=== PATIENT | male | born 1980 | race Caucasian/White ===

== ENCOUNTER 2016-11-14 13:47 | Emergency (ER) ==
[2016-11-14 13:58] VITALS: BP 152/80
[2016-11-14] MEDS ORDERED: XYLOCAINE-MPF 1% INJ ONE (16:06)
[2016-11-14] MEDS ORDERED: ROCEPHIN IM ONE (16:06)
--- NOTE | 2016-11-14 16:12 | PROVIDER DOCUMENTATION ---
HPI-EENT General - General Chief Complaint: Cold Symptoms Stated Complaint: SINUS SX Time Seen by Provider: 11/14/16 15:49 Source: patient, family Allergies/Adverse Reactions: Patient Allergies Allergy/AdvReac Type Severity Reaction Status Date / Time venom-honey bee Allergy Mild SWELLING Verified 07/30/16 14:31 [bee venom (honey bee)] Home Medications: Home Medication List Medication Instructions Recorded Confirmed Last Taken Type Hum Insulin NPH/Reg Insulin Hm 25 units SQ BID 10/29/15 12/10/15 12/10/15 History [Novolin 70-30 In[place]let] Hyoscyamine Sulfate [Oscimin Sr] 1 each PO Q12HR 10/29/15 12/10/15 12/10/15 History Lisinopril 5 mg PO DAILY 10/29/15 12/10/15 12/10/15 History Lorazepam [Ativan] 1 mg PO QHS 10/29/15 12/10/15 12/10/15 History Multivit-Min/FA/Lycopen/Lutein 1 each PO DAILY 10/29/15 12/10/15 12/10/15 History [Centrum Silver Tablet] Pantoprazole [Protonix] 40 mg PO BID 10/29/15 12/10/15 12/10/15 History l Gasseri/B Bifidum/B Longum 1 each PO DAILY 10/29/15 12/10/15 12/10/15 History [Valerio' Colon Health Capsule] Amoxicillin 500 mg PO TID #30 capsule 12/10/15 Unknown Rx Erythromycin Base [Erythromycin] 500 mg PO BID #20 tablet 12/10/15 Unknown Rx Potassium Chloride 8 meq PO TID 12/10/15 12/10/15 12/10/15 History Azithromycin [Zithromax Z-Jatinder] 250 mg PO DIRECTED #1 pkg 07/30/16 Unknown Rx Diclofenac Sodium 50 mg PO Q8-12H PRN PRN #30 07/30/16 Unknown Rx tablet. Dicyclomine HCl [Bentyl] 20 mg PO TID #30 tablet 07/30/16 Unknown Rx Famotidine [Pepcid] 20 mg PO DAILY #20 tablet 07/30/16 Unknown Rx Ondansetron Odt [Zofran 8Mg Odt] 8 mg PO Q8H PRN PRN #20 tablet 07/30/16 Unknown Rx Prednisone [Deltasone] 20 mg PO DIRECTED #12 tablet 07/30/16 Unknown Rx CefDINIR [Omnicef] 300 mg PO RTQ12H #20 capsule 11/14/16 Unknown Rx - History of Present Illness-EENT General EENT Location: reports: ear (R), ear (L), nose, facial Quality of Pain: reports: aching Severity: reports: mild Onset/Duration: reports: 2 days ago Timing: reports: still present Prearrival Treatment: Initiated over the counter meds Associated Symptoms: reports: facial pain/swelling Other injuries?: reports: neck Locality of Occurance: Home Similar Symptoms Previously?: Yes (SINUS INFECTIONS) Recently seen or treated by another doctor?: No - Eyes Eye Problem Symptoms: denies: eye pain, decrease vision, blurred vision, double vision, curtain, other, burning, itching, sensitivity to light, redness, matting , orbital swelling, eyelid swelling, foreign body sensation - Ears Ear Problem Symptoms: reports: earache Ear Problem Context: reports: none. denies: barotrauma, foreign body, trauma to ear, other - Nose Nose Problem Symptoms: other (NASAL CONGESTION) - Throat/Dental Throat/Dental Problem Symptoms: reports: sore throat Recently seen a dentist or have an appointment?: No Review of Systems - Adult - REVIEW OF SYSTEMS - ADULT Constitutional: reports: chills Eyes: reports: no symptoms reported Ears, Nose, Mouth & Throat: reports: ear pain, nose pain Cardiovascular: reports: no symptoms reported Respiratory: reports: no symptoms reported Gastrointestinal: reports: no symptoms reported Genitourinary: reports: no symptoms reported Musculoskeletal: reports: no symptoms reported Integumentary: reports: no symptoms reported Neurological: reports: no symptoms reported Psychiatric: reports: no symptoms reported Endocrine: reports: no symptoms reported Hematologic/Lymphatic: reports: no symptoms reported Allergic/Immunologic: reports: no symptoms reported All Other Systems: Reviewed and Negative Past History - Adult - PAST MEDICAL HISTORY-ADULT Review of Records: reports: Old Records Reviewed, Nursing Assessment Review, Medications Reviewed Major Childhood Illnesses: reports: denies history Cardiovascular: reports: HTN Respiratory: reports: denies history Gastrointestinal: reports: GERD, ulcer, other (hernia) Genitourinary: reports: denies history Musculoskeletal: reports: denies history Neurological: reports: Seizures/Epilepsy Psychiatric: reports: anxiety Endocrine/Immune: reports: Diabetes Diabetes Type: Type 1 Other Conditions: reports: denies history - PRIOR SURGERIES/PROCEDURES Surgical/Procedure History: reports: tonsillectomy, esophageal dilation, orthopedic (extremity) (left leg hardware) - IMMUNIZATION STATUS Childhood Immunizations: See Nurse Assessment Flu Vaccine: See Nurse Assessment - FAMILY HISTORY Family History: reviewed, not pertinent - SOCIAL HISTORY Smoking: denies Substance Use: none/never Alcohol Use Frequency: never Living Situation: family Physical Exam- EENT - Physical Exam EENT Initial Vital Signs Reviewed: Yes General Appearance: appears well Eye Exam: bilateral eye: normal inspection, PERRL, EOMI Ear Exam: bilateral ear: TM red Nasal Exam: discharge, sinus tenderness, other (TURBINATES ERYTHEMATOUS WITH YELLOW DISCHARGE.) Throat Exam: normal mouth inspection Neck: non-tender Respiratory: chest non-tender Cardiovascular: normal peripheral pulses Lymphatic: cervical node tenderness (ANTERIOR CERVICAL ENLARGEMENT, <2CM BILATERALLY, MOBILE) Back Exam: normal inspection Integumentary: normal color, normal turgor Neurologic: grossly normal Psych/Mental Status: normal mood/affect Progress - PLAN OF CARE/RESULTS Progress/Plan/Lab Results: Vital Signs Temp Pulse Resp BP Pulse Ox 11/14/16 13:56 97.6 F 84 18 152/80 100 venom-honey bee [bee venom (honey bee)] Allergy (Mild, Verified 07/30/16 14:31) SWELLING Hum Insulin NPH/Reg Insulin Hm [Novolin 70-30 In[place]let] 25 units SQ BID 10/29/15 Hyoscyamine Sulfate [Oscimin Sr] 1 each PO Q12HR 10/29/15 Lisinopril 5 mg PO DAILY 10/29/15 Lorazepam [Ativan] 1 mg PO QHS 10/29/15 Multivit-Min/FA/Lycopen/Lutein [Centrum Silver Tablet] 1 each PO DAILY 10/29/15 Pantoprazole [Protonix] 40 mg PO BID 10/29/15 l Gasseri/B Bifidum/B Longum [Valerio Colon Health Capsule] 1 each PO DAILY Amoxicillin 500 mg PO TID #30 capsule 12/10/15 Erythromycin Base [Erythromycin] 500 mg PO BID #20 tablet 12/10/15 Potassium Chloride 8 meq PO TID 12/10/15 Azithromycin [Zithromax Z-Jatinder] 250 mg PO DIRECTED #1 pkg 07/30/16 Diclofenac Sodium 50 mg PO Q8-12H PRN PRN #30 tablet. 07/30/16 Dicyclomine HCl [Bentyl] 20 mg PO TID #30 tablet 07/30/16 Famotidine [Pepcid] 20 mg PO DAILY #20 tablet 07/30/16 Ondansetron Odt [Zofran 8Mg Odt] 8 mg PO Q8H PRN PRN #20 tablet 07/30/16 Prednisone [Deltasone] 20 mg PO DIRECTED #12 tablet 07/30/16 Departure - Departure Time of Disposition Order: 16:07 DIAGNOSIS: Sinusitis Qualifiers: Sinusitis location: unspecified location Chronicity: acute Recurrence: recurrent Qualified Code(s): J01.91 - Acute recurrent sinusitis, unspecified Disposition: HOME 01 Certified Medical Emergency: Emergent Condition: Stable Additional Instructions: CONTINUE YOUR HOME MEDICATIONS. MONITOR YOUR BLOOD SUGAR WHILE ILL. TAKE ALL OF ANTIBIOTIC. TAKE CLARITIN OR ZYRTEC OVER THE COUNTER FOR RUNNY NOSE OR POST NASAL DRAINAGE. RETURN TO ER FOR ANY WORSENING SYMPTOMS. ED Follow Up Instructions: You have been treated by a care provider in the Emergency Department. These instructions are being provided to you so you can have an understanding of how to care for yourself upon discharge. Upon discharge from the Emergency Department, you are responsible for making arrangements for follow-up care by a physician of your choice. Take all prescribed medications as directed. Return to the Emergency Department immediately for any new or worsening symptoms. You may call the Physician Referral phone number at [phone] to obtain a list of Physicians who are taking new patients. Prescriptions: CefDINIR [Omnicef] 300 mg PO RTQ12H #20 capsule
== END 2016-11-14 17:28 | disposition home or self-care (01) ==
LOC: ED 13:47
DX: J01.91 Acute recurrent sinusitis, unspecified (principal); R09.81 Nasal congestion; R50.9 Fever, unspecified; H92.03 Otalgia, bilateral; R51 Headache; R68.83 Chills (without fever); J34.89 Other specified disorders of nose and nasal sinuses; I10 Essential (primary) hypertension; Z79.899 Other long term (current) drug therapy; K21.9 Gastro-esophageal reflux disease without esophagitis; E11.9 Type 2 diabetes mellitus without complications; F41.9 Anxiety disorder, unspecified; R59.0 Localized enlarged lymph nodes; Z79.4 Long term (current) use of insulin
CPT/HCPCS: J0696

== ENCOUNTER 2019-06-14 11:11 | Inpatient (IN) ==
[2019-06-14] MEDS ORDERED: NS 500 ML IV ONE ×2 (11:39→12:54)
[2019-06-14] MEDS ORDERED: MOTRIN PO ONE (11:50)
[2019-06-14 12:10] LABS: INR 1.1; PROTIME 14.3 Seconds (11.0-16.0)
[2019-06-14 12:11] LABS: PTT 33.6 Seconds (22.3-41.8)
[2019-06-14 12:26] LABS: ALB/GLOB RATIO 0.6; CALCIUM 8.3 mg/dL (8.8-10.2); CREATININE 6.5 mg/dL (0.7-1.2); POTASSIUM 5.6 mmol/L (3.5-5.1); TOTAL BILIRUBIN 0.39 mg/dL (0.20-1.00); TOTAL PROTEIN 5.3 g/dL (6.3-8.3)
[2019-06-14 12:33] LABS: MAGNESIUM 1.8 mg/dL (1.5-2.7); PHOSPHORUS 2.8 mg/dL (2.7-4.5)
[2019-06-14 12:36] LABS: ACETONE SERUM SMALL (NEGATIVE)
[2019-06-14] MEDS ORDERED: VANCOMYCIN 1 GM/NS 1 GM/250 ML IVPB IV ONE (12:59)
[2019-06-14 13:17] LABS: BASO# 0.01 X1000 (0.0-0.2); EOS# 0.02 X1000 (0.0-0.7); EOS% 0.1 % (0.0-10.0); HEMATOCRIT 37.3 % (42.0-52.0); HEMOGLOBIN 11.3 g/dL (14.0-18.0); IMM GRAN# 0.07 X1000 (0.0-0.04); IMM GRAN% 0.3 % (0.0-0.5); LYMPH% 1.6 % (20.5-51.1); MCH 24.2 PG (27-31); MCHC 30.3 g/dL (33-37); MCV 79.9 FL (81-99); MONO# 0.19 X1000 (0.11-0.59); MONO% 0.8 % (1.7-9.3); MPV 9.5 FL (7.4-10.4); NEUT# 23.87 X1000 (1.4-6.5); NEUT% 97.2 % (42.2-75.2); PLT 550 X1000 (130-400); RBC 4.67 XMIL (4.7-6.1); RDW 14.6 % (11.5-14.5); WBC 24.56 X1000 (4.8-10.8)
[2019-06-14] MEDS ORDERED: HUMULIN R IV ONE (13:25)
[2019-06-14 13:30] LABS: BANDS 10 % (0-1); LYMPHS 2 % (21-51); SEGS 88 % (42-75)
[2019-06-14] MEDS: HUMULIN R 100 UNIT in NS 100 ML IV SCH ×2 (14:23→20:39)
[2019-06-14 14:30] LABS: URINE SOURCE CATH
[2019-06-14 14:38] LABS: BILIRUBIN URINE NEGATIVE (NEGATIVE); BLOOD URINE TRACE (NEGATIVE); COLOR YELLOW; GLUCOSE URINE >1000 mg/dL (NEGATIVE); KETONE URINE 10 mg/dL (NEGATIVE); LEUKOCYTES URINE NEGATIVE (NEGATIVE); NITRITE URINE NEGATIVE (NEGATIVE); PH URINE 6.5; PROTEIN URINE >600 mg/dL (NEGATIVE); SP GRAVITY URINE 1.022; TURBIDITY URINE CLEAR (CLEAR); UR EPITHELIAL CELLS <10 /HPF (<10); URINE BACTERIA NEGATIVE /HPF; URINE RBC <10 /HPF (<10); URINE WBC <10 /HPF (<10); UROBILINOGEN URINE NORMAL (NORMAL)
[2019-06-14 14:48] LABS: UR AMPHETAMINES QUAL NONE DETECTED (NONE DETECT); UR BARBITUATES QUAL NONE DETECTED (NONE DETECT); UR BENZODIAZEPIN QUAL NONE DETECTED (NONE DETECT); UR CANNABINOIDS QUAL NONE DETECTED (NONE DETECT); UR COCAINE QUAL NONE DETECTED (NONE DETECT); UR METHADONE QUAL NONE DETECTED (NONE DETECT); UR OPIATES QUAL NONE DETECTED (NONE DETECT); UR OXYCODONE QUAL NONE DETECTED (NONE DETECT); UR PCP QUAL NONE DETECTED (NONE DETECT)
[2019-06-14] MEDS ORDERED: ASPIRIN PO ONE (15:15)
[2019-06-14 16:51] LABS: HEMOGLOBIN A1C 10.2 % (4.8-6.0)
[2019-06-14] MEDS: PROTONIX PO SCH (17:45)
[2019-06-14 19:13] LABS: CALCIUM 8.2 mg/dL (8.8-10.2); CREATININE 6.8 mg/dL (0.7-1.2); MAGNESIUM 1.8 mg/dL (1.5-2.7); PHOSPHORUS 1.8 mg/dL (2.7-4.5); POTASSIUM 3.8 mmol/L (3.5-5.1)
[2019-06-14] MEDS: COREG PO SCH (20:16)
[2019-06-14 23:14] LABS: CALCIUM 8.3 mg/dL (8.8-10.2); CREATININE 6.7 mg/dL (0.7-1.2); MAGNESIUM 1.8 mg/dL (1.5-2.7); PHOSPHORUS 1.7 mg/dL (2.7-4.5); POTASSIUM 3.3 mmol/L (3.5-5.1)
[2019-06-15 02:34] LABS: MAGNESIUM 1.9 mg/dL (1.5-2.7); PHOSPHORUS 1.8 mg/dL (2.7-4.5)
[2019-06-15 02:52] LABS: CALCIUM 7.8 mg/dL (8.8-10.2); CREATININE 6.3 mg/dL (0.7-1.2); POTASSIUM 3.6 mmol/L (3.5-5.1)
[2019-06-15] MEDS: HUMULIN R 100 UNIT in NS 100 ML IV SCH (04:13)
[2019-06-15] MEDS: PROTONIX PO SCH ×2 (05:30→18:46)
[2019-06-15 06:33] LABS: BASO# 0.05 X1000 (0.0-0.2); BASO% 0.2 % (0.0-0.8); EOS% 1.9 % (0.0-10.0); HEMOGLOBIN 11.5 g/dL (14.0-18.0); IMM GRAN# 0.11 X1000 (0.0-0.04); IMM GRAN% 0.3 % (0.0-0.5); LYMPH# 1.53 X1000 (1.2-3.4); LYMPH% 4.8 % (20.5-51.1); MCH 24.2 PG (27-31); MCHC 31.1 g/dL (33-37); MCV 77.7 FL (81-99); MONO# 1.24 X1000 (0.11-0.59); MONO% 3.9 % (1.7-9.3); MPV 9.5 FL (7.4-10.4); NEUT# 28.08 X1000 (1.4-6.5); NEUT% 88.9 % (42.2-75.2); PLT 469 X1000 (130-400); RBC 4.76 XMIL (4.7-6.1); RDW 14.1 % (11.5-14.5); WBC 31.61 X1000 (4.8-10.8)
[2019-06-15 06:39] LABS: ALB/GLOB RATIO 0.5; ALBUMIN 1.9 g/dL (3.5-5.0); CALCIUM 7.7 mg/dL (8.8-10.2); POTASSIUM 3.8 mmol/L (3.5-5.1); TOTAL BILIRUBIN 0.2 mg/dL (0.20-1.00); TOTAL PROTEIN 5.4 g/dL (6.3-8.3)
[2019-06-15 06:41] LABS: CREATININE 6.4 mg/dL (0.7-1.2)
[2019-06-15 06:57] LABS: BANDS 6 % (0-1); LYMPHS 6 % (21-51); MONO 2 % (1-9); SEGS 86 % (42-75)
[2019-06-15 07:23] LABS: MAGNESIUM 1.9 mg/dL (1.5-2.7)
[2019-06-15] MEDS: ASPIRIN EC PO SCH (09:14)
[2019-06-15] MEDS: COREG PO SCH ×2 (09:14→20:50)
[2019-06-15 11:14] LABS: CALCIUM 7.9 mg/dL (8.8-10.2); POTASSIUM 4.3 mmol/L (3.5-5.1)
[2019-06-15 11:19] LABS: CREATININE 6.7 mg/dL (0.7-1.2)
[2019-06-15 11:21] LABS: MAGNESIUM 1.8 mg/dL (1.5-2.7); PHOSPHORUS 1.8 mg/dL (2.7-4.5)
[2019-06-16 06:38] LABS: ALBUMIN 1.8 g/dL (3.5-5.0); CALCIUM 7.8 mg/dL (8.8-10.2); CREATININE 4.4 mg/dL (0.7-1.2); POTASSIUM 4.7 mmol/L (3.5-5.1)
[2019-06-16] MEDS: PROTONIX PO SCH ×2 (07:19→17:00)
[2019-06-16] MEDS: COREG PO SCH ×2 (09:16→20:33)
[2019-06-16] MEDS: ASPIRIN EC PO SCH (09:16)
[2019-06-16 15:00] LABS: URINE SOURCE CATH
[2019-06-16 15:12] LABS: BILIRUBIN URINE NEGATIVE (NEGATIVE); BLOOD URINE NEGATIVE (NEGATIVE); COLOR YELLOW; GLUCOSE URINE 1000 mg/dL (NEGATIVE); KETONE URINE NEGATIVE (NEGATIVE); LEUKOCYTES URINE NEGATIVE (NEGATIVE); NITRITE URINE NEGATIVE (NEGATIVE); PROTEIN URINE 300 mg/dL (NEGATIVE); TURBIDITY URINE CLEAR (CLEAR); UR EPITHELIAL CELLS <10 /HPF (<10); URINE BACTERIA NEGATIVE /HPF; URINE RBC <10 /HPF (<10); URINE WBC <10 /HPF (<10); UROBILINOGEN URINE NORMAL (NORMAL)
[2019-06-17] MEDS: PROTONIX PO SCH (03:12)
[2019-06-17 06:09] LABS: BASO# 0.04 X1000 (0.0-0.2); BASO% 0.4 % (0.0-0.8); EOS# 0.41 X1000 (0.0-0.7); HEMATOCRIT 34.6 % (42.0-52.0); HEMOGLOBIN 10.3 g/dL (14.0-18.0); IMM GRAN# 0.05 X1000 (0.0-0.04); IMM GRAN% 0.5 % (0.0-0.5); LYMPH# 1.52 X1000 (1.2-3.4); MCH 23.8 PG (27-31); MCHC 29.8 g/dL (33-37); MCV 80.1 FL (81-99); MONO# 0.59 X1000 (0.11-0.59); MONO% 5.8 % (1.7-9.3); MPV 9.1 FL (7.4-10.4); NEUT# 7.53 X1000 (1.4-6.5); NEUT% 74.3 % (42.2-75.2); PLT 480 X1000 (130-400); RBC 4.32 XMIL (4.7-6.1); RDW 14.8 % (11.5-14.5); WBC 10.14 X1000 (4.8-10.8)
[2019-06-17 06:35] LABS: ALBUMIN 1.5 g/dL (3.5-5.0); CALCIUM 7.1 mg/dL (8.8-10.2); CREATININE 4.3 mg/dL (0.7-1.2); PHOSPHORUS 2.9 mg/dL (2.7-4.5)
[2019-06-17] MEDS: COREG PO SCH ×2 (08:55→20:50)
[2019-06-17] MEDS: ASPIRIN EC PO SCH (08:55)
[2019-06-17 12:18] LABS: HEPATITIS PROFILE ACUTE SEE COMMENTS
[2019-06-18 07:16] LABS: HEMATOCRIT 35.4 % (42.0-52.0); HEMOGLOBIN 10.5 g/dL (14.0-18.0); MCH 23.5 PG (27-31); MCHC 29.7 g/dL (33-37); MCV 79.4 FL (81-99); MPV 8.5 FL (7.4-10.4); RBC 4.46 XMIL (4.7-6.1); RDW 14.6 % (11.5-14.5); WBC 8.49 X1000 (4.8-10.8)
[2019-06-18 07:29] LABS: ALBUMIN 1.9 g/dL (3.5-5.0); CALCIUM 8.1 mg/dL (8.8-10.2); CREATININE 2.9 mg/dL (0.7-1.2); PHOSPHORUS 2.9 mg/dL (2.7-4.5); POTASSIUM 4.1 mmol/L (3.5-5.1)
[2019-06-18] MEDS: ASPIRIN EC PO SCH (12:40)
[2019-06-18] MEDS: COREG PO SCH ×2 (12:40→20:41)
[2019-06-19 08:28] LABS: CALCIUM 7.7 mg/dL (8.8-10.2); CREATININE 2.8 mg/dL (0.7-1.2); PHOSPHORUS 3.2 mg/dL (2.7-4.5); POTASSIUM 4.7 mmol/L (3.5-5.1)
[2019-06-19] MEDS: ASPIRIN EC PO SCH (08:57)
[2019-06-19] MEDS: COREG PO SCH (08:58)
[2019-06-20 08:06] LABS: IRON SATURATION 50 %; TIBC 105 ug/dL; TOTAL IRON 53 ug/dL (53-167); UNBOUND IRON 52 ug/dL (112-346)
[2019-06-20 08:09] LABS: ALBUMIN 1.8 g/dL (3.5-5.0); CALCIUM 8.1 mg/dL (8.8-10.2); CREATININE 3.2 mg/dL (0.7-1.2); POTASSIUM 4.8 mmol/L (3.5-5.1)
[2019-06-20 09:06] LABS: FERRITIN 925 ng/mL (30-400)
[2019-06-20] MEDS: ASPIRIN EC PO SCH (09:56)
[2019-06-21] MEDS: ASPIRIN EC PO SCH (08:09)
[2019-06-21 12:57] VITALS: BP 110/61
== END 2019-06-21 18:09 ==
LOC: SUPCPDRO → ED 11:11 → SUATTDRO 17:06 → ICU 17:06 → 3N 06-17 17:15
PROVIDERS: ATTEND Internal Medicine

== ENCOUNTER 2019-11-16 06:49 | Inpatient (IN) ==
[2019-11-16] MEDS ORDERED: KEFZOL 1 GM/D5W 1 GM/50 ML IVPB ONE (07:16)
[2019-11-16] MEDS ORDERED: 1/2 NS 500 ML ONE (07:16)
--- NOTE | 2019-11-16 07:23 | EKG Report ---
Test Performed on : 11/16/2019 07:06:04 AM Test Reason : Preop Blood Pressure : / mmHG Vent. Rate : 072 BPM Atrial Rate : 072 BPM P-R Int : 148 ms QRS Dur : 110 ms QT Int : 432 ms P-R-T Axes : 047 -19 045 degrees QTc Int : 473 ms Normal sinus rhythm. Possible Left atrial enlargement Left ventricular hypertrophy Abnormal ECG When compared with ECG of 15-JUN-2019 07:02, T wave amplitude has increased in Anterior leads Confirmed by Mo Mary MD ([id number]) on 11/16/2019 8:11:42 PM
[2019-11-16 07:27] LABS: HEMATOCRIT 31.3 % (42.0-52.0); HEMOGLOBIN 10.5 g/dL (14.0-18.0); MCH 26.2 PG (27-31); MCHC 33.5 g/dL (33-37); MCV 78.1 FL (81-99); MPV 8.7 FL (7.4-10.4); RBC 4.01 XMIL (4.7-6.1); RDW 16.5 % (11.5-14.5); WBC 8.95 X1000 (4.8-10.8)
[2019-11-16] MEDS ORDERED: COREG ONE ×2 (07:39→07:41)
[2019-11-16 07:51] LABS: CALCIUM 7.9 mg/dL (8.8-10.2); POTASSIUM 4.8 mmol/L (3.5-5.1)
[2019-11-16] MEDS ORDERED: HUMULIN R ONE (08:20)
[2019-11-16] MEDS ORDERED: DIPRIVAN 1% ONE (08:33)
[2019-11-16] MEDS ORDERED: XYLOCAINE-MPF 2% ONE (08:35)
[2019-11-16] MEDS ORDERED: NS 1,000 ML ONE ×2 (08:49→09:48)
[2019-11-16] MEDS ORDERED: HEPARIN ONE ×2 (08:49→09:48)
[2019-11-16] MEDS ORDERED: KEFZOL ONE (08:49)
[2019-11-16] MEDS ORDERED: MARCAINE 0.25% PF ONE (08:49)
[2019-11-16] MEDS ORDERED: XYLOCAINE 1% ONE (08:49)
[2019-11-16] MEDS ORDERED: HEPARIN (DOSE) ONE (11:27)
[2019-11-16] MEDS ORDERED: ZOFRAN ONE (11:49)
[2019-11-16] MEDS: HUMULIN R SUBQ ONE ×2 (13:18→15:06)
[2019-11-16] MEDS ORDERED: LANTUS INSULIN SUBQ ONE (14:09)
[2019-11-16] MEDS ORDERED: ZOFRAN IV PRN ×2 (14:12→14:24)
[2019-11-16] MEDS ORDERED: HUMULIN R SUBQ SCH (14:15)
[2019-11-16] MEDS ORDERED: NORCO-7.5 PO PRN (14:24)
[2019-11-16 15:27] LABS: ALLEN TEST YES; BE 3.2 mmoll (-3.0-3.0); BLOOD TYPE ARTERIAL; HCO3-(ACT) 27.4 mmoll (20.0-26.0); METHB 1.5 % (0.0-1.5); O2(CT) 12.8 mL/dL (15.0-23.0); O2HB 95.9 % (95.0-99.0); PCO2(98.6) 42 mmHg (35-45); PO2(98.6) 114 mmHg (60-100); SAMPLE BLOOD; SAO2 99.1 % (95.0-100.0); THB 9.3 g/dL (11.5-17.4); pH(98.6) 7.43 (7.35-7.45)
[2019-11-16 15:28] LABS: MODALITY CANNULA
--- NOTE | 2019-11-16 17:15 | CONSULTATION ---
DATE OF CONSULTATION: 11/16/2019 ADDENDUM REPORT The patient seen and examined by me face to face. Vital signs and images were reviewed. The patient had a procedure done today by Dr. Daniels on his left arm. He did apparently have a thrombectomy. I do not have the official report yet. The patient has been transferred to the PVC unit because of high glucose level, he is not acidotic though. Anion gap is 11, creatinine is 4, but he is an end-stage renal disease patient. I will give him a dose of Lantus and I will continue with sliding scale insulin. He lives in a senior living and apparently his blood sugar has been always elevated, and actually, most of these hemoglobin A1C's have been high, and the blood glucose level also has been elevated at least since 2011. The patient seems to be resting comfortably in bed. He is sleepy, but arousable. He is oriented x3. His mother is at the bedside. He is coming from a senior living. He has a right lower extremity amputation. The rest of the physical exam is stable. We will try to control his blood sugar. I already asked for an evaluation by Nephrology Department since this patient is an end- stage renal disease. I agree with the rest of the nurse practitioner's assessment and plan. cc: Hemant Weber MD
--- NOTE | 2019-11-16 17:15 | HISTORY AND PHYSICAL ---
CONSULTING PHYSICIAN: Dr. Aaron Daniels. CHIEF COMPLAINT: Elevated blood sugar. HISTORY OF PRESENT ILLNESS: This is a 39-year-old gentleman with a prior history of chronic kidney disease stage 5D, insulin dependent diabetes mellitus, hyperlipidemia, chronic anemia and IgG deficiency underwent thrombectomy of AV fistula and was found to have blood sugars that were in the 500 to 620 range. He was given 10 units of insulin while in recovery and hospitalists were consulted for medical management. PAST MEDICAL HISTORY: 1. Insulin-dependent diabetes mellitus. 2. Chronic kidney disease stage 5D with dialysis Friday, Friday, Friday. 3. Insulin-dependent diabetes mellitus with multiple admissions for ketoacidosis. 4. Diabetic neuropathy. 5. Diabetic retinopathy. 6. Hypertension. 7. Gastroesophageal reflux disease. 8. IgG deficiency. 9. Chronic anemia. 10. Hyperlipidemia. PAST SURGICAL HISTORY: ORIF of the left femur, esophageal dilatation, tonsillectomy, AV fistula. SOCIAL HISTORY: He resides at [facility]. Denies alcohol, tobacco, or illicit drug use. ALLERGIES: Venom from honey bee. HOME MEDICATIONS: A list will be obtained by the nursing staff. Once verified, we will review and restart as appropriate. REVIEW OF SYSTEMS: Discussed with patient with pertinent positives stated in the in the HPI. He denied any syncope or dizziness any chest pain or palpitations, any shortness of breath, cough, fever, chills, nausea, vomiting, diarrhea, constipation, any black or bloody vomitus, hematuria, dysuria, frequency, urgency. PHYSICAL EXAMINATION: GENERAL: This is a 39-year-old gentleman who is lying on the stretcher in no distress. VITAL SIGNS: Blood pressure is 152/59, with a heart rate of 70, respirations are 16, temperature is 97.8 degrees oral with O2 saturations that are 100% on 2 L nasal cannula. EYES: Pupils are equal, round, react to light. EOMs are intact. Sclerae are anicteric. HEENT: Head is normocephalic, atraumatic. Mucous membranes are dry. NECK: Supple with trachea midline. CARDIOVASCULAR: Regular rate and rhythm. S1 and S2 appreciated. No murmur. PULMONARY: Breath sounds are diminished at the bases. Chest rises and falls symmetric with respiration. GASTROINTESTINAL: Abdomen is soft, nontender, nondistended. Bowel sounds in all 4 quadrants. NEUROLOGIC: He is sleepy secondary to anesthesia. SKIN: Warm and dry. LABS: WBC is 8.9 with hemoglobin 10.5, hematocrit 31.3, platelets 390,000. Sodium 125, potassium 4.8, BUN 20, creatinine 4, with glucose of 620 and 599. ASSESSMENT AND PLAN: 1. Insulin-dependent diabetes mellitus with hyperglycemia. 2. Status post revision of AV fistula. 3. Pseudohyponatremia, sodium corrected for blood sugar is 137. 4. Chronic kidney disease stage 5D on Friday, Friday, Friday hemodialysis. We will consult Dr. Pritchett for medical management number. PLAN: 1. The patient will be admitted to [facility] telemetry for close monitoring. 2. Dr. Pritchett will be consulted. 3. Give Lantus insulin 25 units now and intermediate sliding scale every 4 hours. Check hemoglobin A1c. We will check a CBC, CMP, ferritin, folate, magnesium phosphorus, total iron, and vitamin B12 in the morning. 4. We will identify his home medications and continue as appropriate. Plan was discussed with Dr. Henry. Further treatments pending hospital course. Dictated by GLORIA Stein for Hemant Weber MD cc: GLORIA Stein MD
[2019-11-16] MEDS: HUMULIN R SUBQ SCH ×2 (18:11→22:07)
[2019-11-16] MEDS: PHOSLO PO SCH (18:12)
[2019-11-16] MEDS ORDERED: IMODIUM PO PRN (18:52)
[2019-11-16] MEDS ORDERED: COZAAR PO SCH (19:00)
--- NOTE | 2019-11-16 19:46 | OPERATIVE NOTE ---
PROCEDURE DATE: 11/16/2019 PREOPERATIVE DIAGNOSIS: 1. End-stage renal disease. 2. Failure to mature percutaneous arteriovenous fistula. PROCEDURES PERFORMED: 1. Covered stent placement in the ulnar vein. 2. Ultrasound-guided access of the ulnar vein medial branch. 3. Selective venogram. 4. Brachiocephalic arteriovenous fistula. 5. Ultrasound mapping of the cephalic vein in the upper arm and the brachial artery. ANESTHESIA: General. ESTIMATED BLOOD LOSS: 20 mL. SPECIMENS: None. FINDINGS: 1. There was an adequate diameter ulnar vein at the wrist. 2. There was a patent arteriovenous fistula between the medial branch of the ulnar vein and ulnar artery in the proximal forearm. 3. There was adequate diameter up to 3 mm based off of dilator, cephalic vein, and a large brachial artery. 4. Strong thrill noted at the end of the case. OPERATIVE NOTE: Risks, benefits, and alternatives were discussed. Patient consented to the procedure. Seen preoperatively. Surgical site was marked and confirmed. Was taken to the operating room, placed supine position. General anesthesia was induced. His arm was prepped, excluding the hand, with chlorhexidine solution. Focused ultrasound of the wrist was performed and we were able to access the ulnar vein on first pass. Arterialized, but venous blood was noted consistent with an arterialized venous system. The wire threaded easily and was confirmed to be within the medial branch of the ulnar vein on ultrasound. Fluoroscopy was confirmed. A 4-Thai micropuncture sheath was upsized and a venogram was performed. We then subsequently upsized this to a 6-Thai sheath. Venogram was obtained. We felt we had identified an area of the fistula in the midportion of the forearm. Despite multiple injections, we could not cause arterial system to fill, although there was brisk washout consistent with a fistula. As such, an 0.014 and a Berenstein catheter were advanced up. We gained wire purchase. We removed our catheter and then a [place] Viabahn 2.5 cm x 5 mm stent was advanced. A fluoroscopic image was obtained and we marked the area of what we felt was the fistula, and we deployed the stent without issue, withdrawing the device. Subsequent venogram showed apparent continued arterialization of the venous system. We did an angioplasty with a 5 mm balloon, but again, arterialization persisted. As such, we passed our Berenstein catheter through the stent in a more proximal location and performed some obliquity of the C-arm, and at this point we were able to see our fistula which was more proximal overlying the radial tuberosity. A second stent was passed through the previously placed stent and fluoroscopy was performed. We marked the deployment area, ensuring not to encroach upon the brachial vein, and we covered this. At this point, we noted no arterialization of the venous system and we felt we had adequately covered this. We did angioplasty this. There was normal filling of the venous system. At this point, all wires and sheaths were removed. Final fluoroscopic images were obtained. We held pressure at the wrist for several minutes and hemostasis was noted. After this, the cephalic vein was mapped at the skin level along with the brachial artery. We then made a transverse incision above the level of the antecubital fossa and carried this down through subcutaneous tissue. We identified the cephalic vein. It was of adequate caliber. We dissected out a medial and lateral portion. We heparinized with 3000 units of systemic heparin and immediately identified the brachial artery and mobilized this out of its bed, and encircled it with vessel loops. After adequate circulation of the intravenous heparin, we occluded the brachial artery and made a longitudinal arteriotomy, and a 2.7 mm punch was used. We spatulated the vein after ligating the distal aspect, and serially dilated this both with heparinized saline and up to a 3 mm dilator. An end-to-side arteriovenous anastomosis with 7-0 Prolene was performed. We took down the venous clamp. Prior to this, we did note brisk backbleeding from the cephalic vein. Then, we took down the distal vessel loop and proximal. There was a small amount of bleeding that was controlled with Gelfoam of one of the needle holes, and a strong thrill was noted in the cephalic vein. A strong radial pulse was noted distally. We confirmed hemostasis. There was no kinking of the vein and it had a strong thrill noted further up the arm. We closed the dermis with 3-0 Vicryl. Skin was closed with 4-0 Monocryl. Dermabond was applied. The hand was well perfused at the end of the case. Counts were correct. I talked to the family. Of note, his glucose remained elevated despite insulin administration, and we elected to treat him for this as an inpatient. cc: MD Hemant Flor MD
[2019-11-16] MEDS: PROTONIX PO SCH (20:26)
[2019-11-16] MEDS: NEURONTIN PO SCH (20:26)
[2019-11-16] MEDS: CARAFATE PO SCH (20:26)
--- NOTE | 2019-11-16 20:30 | NEPHROLOGY CONSULTATION ---
DATE: 11/16/2019 REASON FOR CONSULTATION: ESRD. HISTORY OF PRESENT ILLNESS: Mr. Kent is a 39-year-old white male with diabetes, hypertension, ESRD. He underwent access placement today by Dr. Daniels. Specifically, he underwent percutaneous ultrasound-guided left arm fistula. He is currently sleeping but arousable. No shortness of breath, nausea, vomiting, etc. PHYSICAL EXAMINATION: Vital Signs: Blood pressure 156/72, heart rate 64, respiration 18, afebrile. General: No acute distress. Skin is pale and dry. Conjunctivae are pink. Neck: Neck veins are not distended. Heart: Regular with systolic murmur present. Lungs: Equal. No crackles or wheezes. Abdomen: Soft, nontender. Bowel sounds present. Extremities: No edema, clubbing or cyanosis. IMPRESSION: Chronic kidney disease 5D. Complicated by hyponatremia. This in turn is related to his severe hyperglycemia. This is being managed by the primary team. No acidosis. Hemoglobin is 10.5 prior to his surgery. Dialysis tomorrow. cc: MD Hemant Tavera MD
[2019-11-16] MEDS ORDERED: ADALAT CC PO SCH (21:00)
[2019-11-16] MEDS ORDERED: COREG PO SCH (21:00)
[2019-11-17] MEDS: HUMULIN R SUBQ SCH ×4 (02:13→13:00)
[2019-11-17] MEDS ORDERED: HEPARIN IV PRN (06:35)
[2019-11-17] MEDS ORDERED: TIGHT: 0.2 ML/HR FOR DIALYSIS MISC PRN (06:35)
[2019-11-17] MEDS ORDERED: NS 2,000 ML MISC PRN (06:35)
[2019-11-17 06:38] LABS: BASO# 0.04 X1000 (0.0-0.2); BASO% 0.4 % (0.0-0.8); EOS# 0.62 X1000 (0.0-0.7); EOS% 5.8 % (0.0-10.0); HEMATOCRIT 30.5 % (42.0-52.0); HEMOGLOBIN 10.2 g/dL (14.0-18.0); HEMOGLOBIN A1C 10.6 % (4.8-6.0); LYMPH# 1.74 X1000 (1.2-3.4); LYMPH% 16.4 % (20.5-51.1); MCH 26.8 PG (27-31); MCHC 33.4 g/dL (33-37); MCV 80.3 FL (81-99); MONO# 0.64 X1000 (0.11-0.59); MPV 8.5 FL (7.4-10.4); NEUT# 7.58 X1000 (1.4-6.5); NEUT% 71.4 % (42.2-75.2); PLT 369 X1000 (130-400); RDW 17.8 % (11.5-14.5); WBC 10.62 X1000 (4.8-10.8)
[2019-11-17 06:56] LABS: ALB/GLOB RATIO 0.9; ALBUMIN 2.4 g/dL (3.5-5.0); CALCIUM 7.9 mg/dL (8.8-10.2); CREATININE 5.4 mg/dL (0.7-1.2); POTASSIUM 4.5 mmol/L (3.5-5.1); TOTAL BILIRUBIN 0.16 mg/dL (0.20-1.00); TOTAL PROTEIN 5.1 g/dL (6.3-8.3)
[2019-11-17 07:18] LABS: FERRITIN 1100 ng/mL (30-400)
[2019-11-17] MEDS ORDERED: PHENERGAN PO PRN (07:31)
[2019-11-17] MEDS ORDERED: TYLENOL PO PRN ×2 (07:31→07:47)
[2019-11-17] MEDS: PHOSLO PO SCH ×2 (08:50→13:00)
[2019-11-17] MEDS: NEURONTIN PO SCH (08:50)
[2019-11-17] MEDS: PROTONIX PO SCH (08:51)
[2019-11-17] MEDS: CARAFATE PO SCH (08:51)
[2019-11-17] MEDS ORDERED: ADALAT CC PO SCH (09:00)
[2019-11-17] MEDS ORDERED: FOLIC ACID PO SCH (09:00)
[2019-11-17] MEDS ORDERED: ASPIRIN EC PO SCH (09:00)
[2019-11-17] MEDS ORDERED: COREG PO SCH (09:00)
[2019-11-17] MEDS ORDERED: COZAAR PO SCH (09:00)
[2019-11-17] MEDS ORDERED: ICAR-C PO SCH (09:00)
[2019-11-17] MEDS ORDERED: LANTUS INSULIN SUBQ SCH ×2 (09:00→21:00)
[2019-11-17] MEDS ORDERED: VICON-C PO SCH (09:00)
[2019-11-17] MEDS ORDERED: CULTURELLE PO SCH (09:00)
--- NOTE | 2019-11-17 09:38 | PROGRESS NOTE ---
DATE: 11/17/2019 SUBJECTIVE: The patient seems to be awake, alert. He is oriented x3. No focal neurological deficits. His blood sugar seems to be stable today. Lab work in the morning was around 158. He is scheduled for dialysis today as well. His mother is at the bedside. They have requested a re- evaluation by the surgeon who did an AV graft yesterday on the left upper extremity. That seems to be fine, a little bit swollen, but no signs of infection or bleeding. His hemoglobin A1c is 10.6. The patient states that he is using his insulin as prescribed. OBJECTIVE: Vital Signs: Temperature 99 degrees, pulse 68, respiratory rate 18, blood pressure 130/69, oxygen saturation 97% on room air. HEENT: Head normocephalic. No trauma. PERRLA. Neck: Supple. No JVD. No masses. Central trachea. Chest: Clear to clear to auscultation. No wheezing. No rales. Abdomen: Soft, nontender, nondistended. No hepatosplenomegaly. Extremities: He has his right lower extremity amputated. His left upper extremity is a little bit swollen, with an incision that looks clean, dry, and intact. No signs of bleeding or infection. Neurologic: The patient is awake and alert. He is oriented x3. No focal deficits. LABORATORY DATA: WBC 10.6, hemoglobin 10.2, hematocrit 30.5, platelets 369,000. Sodium 133, potassium 4.5, chloride 95, bicarbonate 27, BUN 29, creatinine 5.4, glucose 158, calcium 7.9. Iron 48, total iron binding capacity is 138. Albumin 2.4. ASSESSMENT AND PLAN: 1. Uncontrolled type 2 diabetes with hyperglycemia. Upon admission, his blood sugar was around 620, now is back down to 155. As per the patient, he is using his insulin as prescribed. As per the patient, sometimes his blood sugar at the snf is within normal limits, and sometimes up to the 300s. I do not think he is following a diet. 2. Status post revision of arteriovenous fistula. Aware. Surgery Department has been on board. 3. Pseudohyponatremia, improved, now is much better. 4. Chronic kidney disease stage 5D, on hemodialysis Friday, Friday, and Friday. He is scheduled for dialysis today. 5. Hypertension. Continue with home medications. 6. Gastroesophageal reflux disease. Continue home medication. 7. IgG deficiency. Aware. 8. Chronic anemia, stable. 9. Hyperlipidemia. Continue with the same management. 10. Diabetic neuropathy and retinopathy. Aware. His hemoglobin A1c is 10.6. It looks like he has not been taking care of his blood sugar at the snf. He seems to be stable today. He is going to go for dialysis. He is completely awake, alert. He is oriented. They have requested a re-evaluation by the surgeon, which I believe is going to see him today anyway, of the left upper extremity because it is slightly swollen. If everything is okay, this patient probably can be discharged today or tomorrow morning. cc: Hemant Weber MD
--- NOTE | 2019-11-17 11:33 | NEPHROLOGY PROGRESS NOTE ---
DATE: 11/17/2019 TIME SEEN: 0655. SUBJECTIVE: Patient lying in bed with family at bedside, watching TV. He denies any uremic complaints. He voices his scheduled procedure going well and no hyper/hypoglycemic events during the night. OBJECTIVE: Vital Signs: Temperature 99 degrees, pulse 68, respirations 18, blood pressure 130/69, O2 saturation 97% on room air. General: Chronically ill-appearing, white male, lying in bed in no acute distress. Skin: Pale, warm, and dry, with right tunneled catheter to upper chest wall. Neck: Supple. Positive JVD with hepatojugular reflux. Cardiovascular: S1, S2. Regular rate and rhythm. Soft systolic murmur noted. Pulmonary: Clear to auscultation with equal air entry. Abdomen: Soft, nontender, nondistended. Bowel sounds active. : Not inspected. Extremities: Right below-knee amputation noted. Left arm fistula noted. LABORATORY DATA: WBC 10.62, hemoglobin 10.2, hematocrit 30.5, platelet count 369,000. Sodium 133, potassium 4.5, chloride 95, carbon dioxide 27, BUN 29, creatinine 54, glucose 158. Intake 1250, output 450. IMPRESSION: 1. Chronic kidney disease stage 5D, complicated by hyponatremia and severe hyperglycemia. These are being managed by the primary team. He has not had any severe hyperglycemic events. His sodium level today is 133, which is improved. His creatinine is 5.4. He denies any uremic complaints. He was able to make 400 mL of urine yesterday. He plans on discharging today, and we will follow up in the outpatient setting after his hemodialysis. He will get his routine hemodialysis with a 2-potassium bath, and attempt ultrafiltration to last post dry weight. 2. Blood pressure. Stable. 3. Fluid volume. Slightly expanded. He will have hemodialysis to help with management. 4. Anemia. Lab is stable. Does not meet transfusion criteria. 5. Electrolytes and acid-base balance. These are acceptable. Managed with hemodialysis. 6. Nutrition. Adequate. 7. Medication review. Home medications restarted. 8. Disposition. After dialysis, he plans on discharging. We will follow up with him in the outpatient setting. I would like to thank you for allowing us to follow with this patient. Dictated by GLORIA Mason for Mook Pritchett MD Face to face encounter, data reviewed, discussed with Jas Garcia on 11/17/19. I agree with the above assessment and plan of care. cc: MD Hemant Tavera MD MTDD
[2019-11-17 13:37] VITALS: BP 149/73
--- NOTE | 2019-11-17 16:23 | DISCHARGE SUMMARY ---
ADMISSION DATE: 11/16/2019 DISCHARGE DATE: 11/17/2019 DISCHARGE DIAGNOSES: 1. Uncontrolled type 2 diabetes with hyperglycemia. 2. Status post revision of arteriovenous fistula. 3. Pseudohyponatremia. 4. Chronic kidney disease stage 5, on dialysis. 5. Hypertension. 6. Gastroesophageal reflux disease. 7. IgG deficiency. 8. Chronic anemia. 9. Hyperlipidemia. 10. Diabetic neuropathy and retinopathy. HOSPITAL COURSE: 39-year-old, male with a past medical history of CKD stage 5--on dialysis, uncontrolled diabetes, hyperlipidemia, chronic anemia, IgG deficiency underwent a covered stent placement in the ulnar vein and ultrasound-guided access of the ulnar vein medial branch, selective venogram, brachiocephalic AV fistula and ultrasound mapping of the cephalic vein in the upper arm and the brachial artery due to end-stage renal disease and failure to mature percutaneous AV fistula, postoperative day #1. The patient seems to be doing good during the procedure, but her blood sugar was really high at 620, as per the patient normally his blood sugar is between 100s-300s. I believe he is not taking care of his blood sugar at home or he is not taking care of his medications. We put him back on his home medications and the blood sugar improved to 158 today and he was 188 the last check. The patient is feeling better. Surgery Department already evaluated this patient. He has a dialysis treatment today and he will be discharged back to the correction. He will need to follow up with Dr. Daniels, who is the surgeon, and also continue with dialysis as scheduled. OBJECTIVE: Vital Signs: Temperature 99.4 degrees, pulse 69, respiratory rate 16, blood pressure 97/57, oxygen saturation 100% on room air. HEENT: Head normocephalic, no trauma, PERRLA. Neck: Supple. No JVD. No masses. Central trachea. Chest: Clear to auscultation. No wheezing. No rales. Abdomen: Soft, nontender, nondistended. No hepatosplenomegaly. Extremities: Right lower extremity amputation. His left upper extremity is a little bit swollen with an incision that looks clean, dry, and intact in the middle aspect. No signs of bleeding or infection. Neurological: Awake, alert, he is oriented x3. No focal deficits but some mild weakness. LABORATORY: WBC 10.6, hemoglobin 10.2, hematocrit 30.5, platelets 369,000. Sodium 133, potassium 4.5, chloride 95, bicarbonate 27, BUN 29, creatinine 5.4, glucose 158, calcium 7.9. DISCHARGE MEDICATIONS: This patient will be discharged with his home medications and I will add some pain medication as well; acetaminophen 325 mg, 2 tablets every 6 hours as needed, aspirin 81 mg p.o. daily, PhosLo 667 mg p.o. t.i.d., carvedilol 6.25 mg p.o. b.i.d., Colesevelam 625 mg tablet 2 tablets p.o. b.i.d., glucose gel 1 dose p.o. as needed, ezetimibe 10 mg p.o. at bedtime, folic acid 1 mg p.o. daily, gabapentin 100 mg p.o. b.i.d., glucagon as needed 1 mg IM, [place] 7.5 p.o. every 6 hours as needed x10 pills, insulin glargine 35 units subcutaneous q.a.m. and 8 units subcutaneous at bedtime, insulin lispro as scheduled--sliding scale, Icar C 1 tablet p.o. daily, probiotic 2 capsules p.o. daily, loperamide as needed 2 mg every 6 hours, nifedipine 90 mg p.o. b.i.d., pantoprazole 40 mg p.o. b.i.d., promethazine 12.5 mg p.o. at bedtime, Crestor 20 mg p.o. at bedtime, Carafate 1 gm p.o. b.i.d., Urea 40% Neocate on top at bedtime, and vitamin B complex/vitamin-C 1 capsule p.o. daily. cc: Hemant Weber MD MTDD
--- NOTE | 2019-11-17 16:51 | GENERAL SURGERY PROGRESS NOTE ---
DATE: 11/17/2019 SUBJECTIVE: Some swelling in his arm, but no pain in his hand. OBJECTIVE: On exam he is afebrile. No tachycardia. He has a strong thrill over the cephalic vein. His hand is well perfused with palpable radial pulse. Some mild edema, mostly in the proximal forearm, but no focal swelling of his incision. Has blood sugars are better. ASSESSMENT AND PLAN: A 39-year-old gentleman status post left brachiocephalic fistula with covered stent placement in ulnar vein, who is admitted for hyperglycemia and history of diabetic ketoacidosis, this is better. From a surgical perspective he can go back to Rehab, but we will defer to the medicine services. We will see the patient in a week. cc: MD Hemant Flor MD
[2019-11-17] MEDS ORDERED: ZETIA PO SCH (21:00)
[2019-11-17] MEDS ORDERED: CRESTOR PO SCH (21:00)
== END 2019-11-17 16:43 | DRG 628 ==
LOC: OR 06:49 → 4N 13:57 → 1N 14:07 → 2N 14:57
PROVIDERS: ADMIT Internal Medicine; ATTEND Surgery